=== PATIENT | female | born 1950 | race Caucasian/White ===

== ENCOUNTER 2018-10-30 16:23 | Inpatient (IN) | payer MEDICARE ==
[2018-10-30 16:43] VITALS: BMI 32.0
[2018-10-30] MEDS ORDERED: Bisacodyl 10 MG SUPP PR PRN (17:32)
[2018-10-30] MEDS ORDERED: Nitroglycerin 0.4 MG TAB (25 Tab Bottle) SL PRN (17:32)
[2018-10-30] MEDS ORDERED: Calcium Carbonate 500 MG ChewTAB PO PRN (17:32)
[2018-10-30] MEDS ORDERED: Acetaminophen 650 MG Suppository PR PRN (17:32)
[2018-10-30] MEDS ORDERED: Guaifenesin DM 100-10/5 ML UDCUP PO PRN (17:32)
[2018-10-30] MEDS ORDERED: Loperamide HCl 2 MG CAP PO PRN ×2 (17:32)
[2018-10-30] MEDS ORDERED: Ondansetron ODT 4 MG TAB PO PRN (17:32)
[2018-10-30] MEDS: Zolpidem Tartrate 5 MG TAB PO PRN (20:08)
[2018-10-30] MEDS: ALPRAZolam 0.5 MG TAB PO PRN (20:08)
[2018-10-30] MEDS: Aspirin 81 mg Enteric Coated Tablet PO SCH (20:08)
[2018-10-30] MEDS: Acetaminophen 500 MG TAB PO PRN (20:08)
[2018-10-30 20:46] LABS: Bilirubin Negative (Negative); Blood, Urine Negative (Negative); Clarity Clear (Clear); Glucose, Urine (Dipstick) Negative (Negative); Leukocyte Negative (Negative); Nitrite Negative (Negative); Protein, Urine (Dipstick) Negative (Neg-Trace); Specific Gravity, Urine 1.005 (1.002-1.036); Urobilinogen 0.2 mg/dL (0.2-1.0); pH, Urine 6.5 (5.0-9.0)
[2018-10-30] MEDS ORDERED: Gabapentin 300 MG CAP PO SCH (21:00)
[2018-10-30 21:25] LABS: Squamous Epithelial 0-3 HPF (0-3)
[2018-10-31 05:09] LABS: #Basophils 0.1 thou/uL (0.0-0.2); #Eosinphils 0.3 thou/uL (0.0-0.7); #Lymphocytes 1.2 thou/uL (1.20-3.40); #Monocytes 0.6 thou/uL (0.11-0.59); #Neutrophils 4.4 thou/uL (1.40-6.50); %Basophils 0.8 % (0.0-1.0); %Eosinophils 4.4 % (0.0-10.0); %Lymphocytes 18.5 % (21.0-51.0); %Monocytes 9.1 % (0.0-10.0); %Neutrophils 67.1 % (42.0-75.0); Hemoglobin 10.6 g/dL (12.0-16.0); Mean Corpuscular HGB CONC 32.3 g/dL (32.0-36.0); Mean Corpuscular Hemoglobin 28.8 pg (27.0-31.0); Mean Corpuscular Volume 89.1 fL (78.0-98.0); Mean Platelet Volume 5.6 fL (7.4-10.4); Platelet Count 237 thou/uL (130-400); RBC Distribution Width 12.6 % (11.5-14.5); Red Blood Cell (RBC) Count 3.68 mill/uL (4.20-5.40); White Blood Cell (WBC) Count 6.5 thou/uL (4.8-10.8)
[2018-10-31] MEDS: Levothyroxine Sodium 88 MCG TAB PO SCH (05:15)
[2018-10-31 05:28] LABS: ALT (SGPT) 15 U/L (8-55); AST (SGOT) 18 U/L (5-34); Albumin 3.2 g/dL (3.4-4.8); Alkaline Phosphatase 74 U/L (40-150); Anion Gap 12 mmol/L (10-20); BUN (Urea Nitrogen) 4 mg/dL (9.8-20.1); Bilirubin, Total 0.7 mg/dL (0.2-1.2); Calc. Creatinine Clearance 140 mL/min (70-130); Carbon Dioxide 29 mmol/L (23-31); Chloride 98 mmol/L (98-107); Estimated GFR-MDRD Greater than 90; Globulin 2.7 g/dL (2.4-3.5); Glucose 103 mg/dL (80-115); Potassium 4.1 mmol/L (3.5-5.1); Protein, Total 5.9 g/dL (6.0-8.3); Sodium 135 mmol/L (136-145)
[2018-10-31] MEDS ORDERED: Polyethylene Glycol 3350 17 GM Packet PO PRN (06:26)
[2018-10-31] MEDS: Aspirin 81 mg Enteric Coated Tablet PO SCH ×2 (08:58→20:41)
[2018-10-31] MEDS: traMADol HCl 50 MG TAB PO PRN ×2 (08:59→14:43)
[2018-10-31] MEDS: HYDROcodone/Acetaminophen 10/325 mg Tablet PO PRN (10:12)
--- NOTE | 2018-10-31 13:50 | HP ---
HISTORY OF PRESENT ILLNESS: Ms. Sujey Roldan is a very pleasant 67-year-old white female, who had an elective left total hip arthroplasty done by Dr. Cuevas. Postoperatively, she did very well, but lives by herself and was unable to go home and take care of herself. She was transferred to [facility] for physical therapy and occupational therapy to increase her strength and stamina, so she can go home soon. The patient states she is doing well. She slept well last night. Her pain is under very good control and she is a little hungry this morning. She denies being constipated. PAST MEDICAL HISTORY: 1. Reveals the patient does have a history of hypothyroidism. 2. Insomnia. 3. Anxiety. 4. Degenerative joint disease. 5. Generalized weakness. PAST SURGICAL HISTORY: 1. The patient has had 2 vaginal deliveries. 2. Breast augmentation. 3. Total left hip arthroplasty. FAMILY HISTORY: Reveals the patient's father is alive at age 94 and the patient takes care of him. The patient's mother at age 89. She had some dementia. The patient has 2 brothers, both have coronary artery disease and diabetes. The patient has 2 healthy daughters. SOCIAL HISTORY: Reveals the patient is . She lives by herself. The patient does not smoke and rarely has any alcohol intake. She is retired housewife and one of her husbands was in . She is at this time. 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 PRESENT MEDICATIONS: Revealed the patient presently takes the followin. Xanax 0.25 mg twice a day p.r.n. anxiety. 2. Aspirin 81 mg a day. 3. Levothyroxine 88 mcg daily. 4. Tramadol 50 mg q.4 hours p.r.n. moderate pain. 5. Ambien 5 mg h.s. p.r.n. insomnia. 6. The patient was on gabapentin 300 mg h.s., but she states she does not need that anymore since her surgery. ALLERGIES: REVEAL THE PATIENT IS NOT ALLERGIC TO ANY MEDICATIONS. REVIEW OF SYSTEMS: CONSTITUTIONAL: The patient denies any change in appetite, weight, fatigue, malaise, nausea, vomiting, fever, chills, or night sweats. She has occasional pain, which is well controlled. SKIN: The patient denies any skin problems including itching, rash, significant moles, or skin cancer. HEENT: The patient denies any change in hearing or vision or cataracts. Denies any sore throat, runny nose, sneezing, or hoarseness. RESPIRATORY: The patient denies any shortness of breath, cough, cold, wheezing, dyspnea on exertion, or productive sputum. HEART: The patient denies any chest pain, lower extremity edema, except secondary to her left hip surgery, syncope, claudication, or palpitations. GI: The patient denies nausea; vomiting; indigestion; diarrhea; constipation; bloody, black or tarry stools; or hemorrhoids. MUSCULOSKELETAL: The patient does have some arthralgias in her left hip postop, but she states her pain is much improved than it was before she had her surgery. NEUROLOGIC: The patient denies any stroke, tingling, numbness, weakness, focal neuropathies, fainting spells, loss of consciousness, or seizures. PSYCHOLOGIC: The patient denies depressive disorder, stress, significant anxiety, memory problems, or concentration problems. ENDOCRINE: The patient denies any polydipsia, polyuria, polyphagia, heat or cold intolerance. PHYSICAL EXAMINATION: GENERAL: This is a well-developed, well-nourished, very pleasant 67-year-old white female, in no apparent distress at this time. HEENT: Normocephalic, nontraumatic cranium. Pupils are equal, round, and reactive. Extraocular movements are intact. Nose and throat are slightly dry. NECK: Supple without masses, nodes, or bruits. CHEST: Clear to auscultation. No rales. No rhonchi. No wheezes. No cough is heard. HEART: Reveals a regular rate and rhythm without murmurs, gallops, or rubs. ABDOMEN: Soft, nontender without organomegaly. Normal bowel sounds are noted. : Deferred. EXTREMITIES: Reveal no clubbing, cyanosis, or edema. MUSCULOSKELETAL: The left hip has a surgical incision from her total left hip arthroplasty done by Dr. Cuevas. Presently covered with a dressing, which I did not remove. There is no drainage at all on the dressing this morning. PSYCHOLOGIC: The patient is oriented to person, place, time, and situation. Her affect and mood are appropriate. Memory, recent and remote are intact. ASSESSMENT: 1. Status post total left hip arthroplasty done by Dr. Cuevas. 2. Hypothyroidism. 3. History of having insomnia. 4. History of anxiety in the past. Takes Xanax 0.5 b.i.d. She states she rarely takes more than 4 pills in a whole month. 5. Neuropathy secondary to her left hip osteoarthritis, but the patient denies gabapentin at this time. States that pain is gone. 6. Generalized weakness. PLAN: 1. The patient is here for physical therapy and occupational therapy to increase her strength and stamina. 2. The patient lives independently by herself and will need to be at maximum strength so she go home and care for himself. 3. Continue present medications. 4. Wean pain medication as available. 5. Stress ulcer prophylaxis. 6. Decubitus precautions. 7. DVT prophylaxis. 8. Physical therapy and occupational therapy. Job ID: [id number]
[2018-10-31] MEDS: Acetaminophen 500 MG TAB PO PRN ×2 (14:43→20:42)
[2018-10-31] MEDS: Zolpidem Tartrate 5 MG TAB PO PRN (20:42)
[2018-10-31] MEDS: ALPRAZolam 0.5 MG TAB PO PRN (20:42)
[2018-11-01] MEDS: Acetaminophen 500 MG TAB PO PRN ×2 (03:36→09:18)
[2018-11-01] MEDS: traMADol HCl 50 MG TAB PO PRN ×3 (03:36→20:39)
[2018-11-01] MEDS: Levothyroxine Sodium 88 MCG TAB PO SCH (06:03)
--- NOTE | 2018-11-01 07:41 | PRG ---
DATE OF SERVICE: 11/01/2018 SUBJECTIVE: Ms. Roldan is a very pleasant 67-year-old white female, who had an elective total hip arthroplasty done by Dr. Cuevas. Postoperatively, she was not good enough to go home by herself, so she was transferred to [facility] for PT and OT. She is here to increase her strength, stamina, and balance. The patient states she walked a little bit yesterday and her pain is better than she expected, but still present. She is not near strong as she thought she would be. OBJECTIVE: VITAL SIGNS: Reveal blood pressure 111/61, pulse 92 to 94, respirations 20, O2 saturation 93% to 94% on room air, and T-max 97.3. GENERAL: This is a well-developed and well-nourished, very pleasant 67-year-old white female, in no apparent distress at this time. HEENT: Normocephalic and nontraumatic cranium. The pupils are equally round and reactive. Extraocular movements are intact. Nose and throat are slightly dry. NECK: Supple without masses, nodes, or bruits. CHEST: Clear to auscultation. No rales, rhonchi, wheezes, or cough is heard. HEART: Reveals a regular rate and rhythm without murmurs, gallops, or rubs. ABDOMEN: Soft and nontender without organomegaly. Normal bowel sounds are noted in all 4 quadrants. : Deferred. EXTREMITIES: Reveal no clubbing, cyanosis, or edema. Left hip surgical incision is really nontender. Presently covered with dressing with no significant drainage again. The patient is oriented to person, place, and time. ASSESSMENT: 1. Status post total left hip arthroplasty by Dr. Cuevas. 2. Hypothyroidism. 3. Insomnia. 4. Anxiety in the past. 5. Neuropathy secondary to left hip osteoarthritis. 6. Postop pain. 7. Generalized weakness. PLAN: 1. Continue physical therapy and occupational therapy to increase her strength and stamina. 2. Continue present medications. 3. Pain medication as needed, but wean as able. 4. Stress ulcer prophylaxis. 5. Decubitus precautions. 6. DVT prophylaxis. 7. Physical therapy and occupational therapy. Job ID: [id number]
[2018-11-01] MEDS: Aspirin 81 mg Enteric Coated Tablet PO SCH ×2 (09:18→20:39)
[2018-11-01] MEDS: Senokot S 8.6-50 MG TAB PO PRN (13:50)
[2018-11-01] MEDS: HYDROcodone/Acetaminophen 10/325 mg Tablet PO PRN (14:42)
[2018-11-01] MEDS: Zolpidem Tartrate 5 MG TAB PO PRN (20:41)
[2018-11-01] MEDS: ALPRAZolam 0.5 MG TAB PO PRN (20:41)
[2018-11-02] MEDS: HYDROcodone/Acetaminophen 10/325 mg Tablet PO PRN (00:52)
[2018-11-02] MEDS: Levothyroxine Sodium 88 MCG TAB PO SCH (06:02)
[2018-11-02] MEDS: Aspirin 81 mg Enteric Coated Tablet PO SCH ×2 (08:18→21:07)
[2018-11-02] MEDS: Senokot S 8.6-50 MG TAB PO PRN (12:27)
--- NOTE | 2018-11-02 14:51 | PRG ---
DATE OF SERVICE: 11/02/2018 SUBJECTIVE: Ms. Roldan is resting comfortably in bed. She denies any complaints except constipation. Pain is well controlled. She is tolerating her therapy. No family at bedside. No other concerns or questions. OBJECTIVE: VITAL SIGNS: She is afebrile. Heart rate 68, respirations 18, oxygen saturation 95% on room air, blood pressure 139/88. CARDIOVASCULAR: S1 and S2 plus. RESPIRATORY: Normal vesicular breath sounds. ABDOMEN: Soft, nontender. Bowel sounds heard in all quadrants. EXTREMITIES: Without cyanosis or clubbing. Peripheral pulses are palpable. Hip incision with dressing. CENTRAL NERVOUS SYSTEM: A and O x3. Cranial nerves 2 through 12 are intact. Grossly nonfocal. IMPRESSION: 1. Hypothyroidism. 2. Degenerative joint disease. 3. Anxiety. 4. Insomnia. 5. Osteoarthritis, status post hip replacement to the left. 6. Deconditioning. PLAN: 1. Continue current medications. 2. Pain control. 3. MiraLAX daily and add Dulcolax suppository p.r.n. 4. Stool softener daily. 5. Incision care. 6. Orthopedic precautions. 7. PT, OT eval and treat. 8. Recommended use of incentive spirometry. 9. Stress ulcer prophylaxis. 10. Routine laboratory values. 11. Discussed with the patient in detail. All questions answered. Job ID: [id number]
[2018-11-02] MEDS: ALPRAZolam 0.5 MG TAB PO PRN (21:06)
[2018-11-02] MEDS: Zolpidem Tartrate 5 MG TAB PO PRN (21:06)
[2018-11-02] MEDS: traMADol HCl 50 MG TAB PO PRN (21:06)
[2018-11-03] MEDS: Levothyroxine Sodium 88 MCG TAB PO SCH (06:03)
[2018-11-03] MEDS: HYDROcodone/Acetaminophen 10/325 mg Tablet PO PRN ×2 (08:35→16:03)
[2018-11-03] MEDS: Aspirin 81 mg Enteric Coated Tablet PO SCH ×2 (08:36→21:13)
[2018-11-03] MEDS: ALPRAZolam 0.5 MG TAB PO PRN ×2 (08:41→21:13)
--- NOTE | 2018-11-03 13:11 | PRG ---
DATE OF SERVICE: 11/03/2018 SUBJECTIVE: Ms. Roldan is doing well. Denies any complaints. She had a good bowel movement. Denies any concerns or questions. OBJECTIVE: VITAL SIGNS: She is afebrile. Heart rate is 85, respirations 18, oxygen saturation 94% on room air, and blood pressure 139/86. CARDIOVASCULAR: S1 and S2 plus. RESPIRATORY: Normal vesicular breath sounds. ABDOMEN: Soft, nontender. Bowel sounds heard in all quadrants. EXTREMITIES: Without cyanosis or clubbing. Hip incision is healthy. CENTRAL NERVOUS SYSTEM: A/O x3. Cranial nerves 2 through 12 intact. IMPRESSION: 1. Osteoarthritis, status post left total hip replacement. 2. Hypothyroidism. 3. Anxiety. 4. Insomnia. 5. Deconditioning. PLAN: 1. Continue current medications. 2. Nutritional support. 3. Colace daily. 4. Bowel regimen. 5. Pain management. 6. Incision care. 7. Orthopedic precautions. 8. PT/OT eval and treat. 9. DVT and stress ulcer prophylaxis. Job ID: [id number]
[2018-11-03] MEDS: traMADol HCl 50 MG TAB PO PRN (21:13)
[2018-11-03] MEDS: Zolpidem Tartrate 5 MG TAB PO PRN (21:14)
[2018-11-04] MEDS: Levothyroxine Sodium 88 MCG TAB PO SCH (05:59)
[2018-11-04] MEDS: Docusate 100 MG CAP PO SCH (09:02)
[2018-11-04] MEDS: Aspirin 81 mg Enteric Coated Tablet PO SCH ×2 (09:02→20:48)
[2018-11-04] MEDS: Acetaminophen 500 MG TAB PO PRN (12:04)
[2018-11-04] MEDS: traMADol HCl 50 MG TAB PO PRN (12:04)
[2018-11-04] MEDS: Senokot S 8.6-50 MG TAB PO PRN (20:45)
[2018-11-04] MEDS: Zolpidem Tartrate 5 MG TAB PO PRN (20:46)
[2018-11-05] MEDS: Levothyroxine Sodium 88 MCG TAB PO SCH (06:18)
[2018-11-05] MEDS: Docusate 100 MG CAP PO SCH (08:56)
[2018-11-05] MEDS: traMADol HCl 50 MG TAB PO PRN ×2 (08:56→15:19)
[2018-11-05] MEDS: Acetaminophen 500 MG TAB PO PRN ×3 (08:56→21:28)
[2018-11-05] MEDS: Aspirin 81 mg Enteric Coated Tablet PO SCH ×2 (08:56→20:22)
[2018-11-05] MEDS: ALPRAZolam 0.5 MG TAB PO PRN ×2 (09:01→20:22)
--- NOTE | 2018-11-05 13:57 | PRG ---
DATE OF SERVICE: 11/05/2018 SUBJECTIVE: Ms. Roldan is doing well. Denies any complaints. Resting comfortably. Tolerating her therapy. She is happy with her progress. Pain is controlled. No family at bedside. OBJECTIVE: VITAL SIGNS: She is afebrile. Heart rate is 105, respirations 18, oxygen saturation 94% on room air, and blood pressure 129/83, this was apparently when she was anxious. After she got an anxiety pill and recheck, currently now, her heart rate is 78. CARDIOVASCULAR SYSTEM: S1 and S2 plus. RESPIRATORY SYSTEM: Normal vesicular breath sounds. ABDOMEN: Soft and nontender. Bowel sounds heard in all quadrants. EXTREMITIES: Without cyanosis or clubbing. Peripheral pulses are palpable. Hip incision is healthy. CENTRAL NERVOUS SYSTEM: AAO x3. Cranial nerves 2 through 12 intact. Improving generalized weakness. IMPRESSION: 1. Osteoarthritis, status post left total hip replacement. 2. Hypothyroidism. 3. Anxiety. 4. Insomnia. 5. Improving deconditioning. PLAN: 1. Continue current medications. 2. Nutritional support. 3. DVT and stress ulcer prophylaxis. 4. Decubitus precautions. 5. Incision care. 6. Orthopedic precautions. 7. Continue PT/OT treatment. Discussed with the patient and nursing in detail. All questions answered. Job ID: [id number]
[2018-11-05] MEDS: Zolpidem Tartrate 5 MG TAB PO PRN (21:28)
[2018-11-06] MEDS: Levothyroxine Sodium 88 MCG TAB PO SCH (05:50)
[2018-11-06] MEDS: Aspirin 81 mg Enteric Coated Tablet PO SCH ×2 (08:56→21:14)
[2018-11-06] MEDS: Docusate 100 MG CAP PO SCH (08:56)
[2018-11-06] MEDS: traMADol HCl 50 MG TAB PO PRN ×2 (13:21→23:56)
[2018-11-06] MEDS: Acetaminophen 500 MG TAB PO PRN ×2 (13:24→21:53)
[2018-11-06] MEDS: ALPRAZolam 0.5 MG TAB PO PRN (21:14)
[2018-11-06] MEDS: Zolpidem Tartrate 5 MG TAB PO PRN (21:53)
[2018-11-07] MEDS: Levothyroxine Sodium 88 MCG TAB PO SCH (05:57)
[2018-11-07] MEDS: Aspirin 81 mg Enteric Coated Tablet PO SCH ×2 (09:07→21:27)
[2018-11-07] MEDS: Docusate 100 MG CAP PO SCH (09:07)
[2018-11-07] MEDS: Acetaminophen 500 MG TAB PO PRN (11:13)
[2018-11-07] MEDS: HYDROcodone/Acetaminophen 10/325 mg Tablet PO PRN (12:48)
--- NOTE | 2018-11-07 16:58 | PRG ---
DATE OF SERVICE: 11/07/2018 SUBJECTIVE: Ms. Roldan is doing well. Denies any complaints. Resting comfortably. She is ambulating with the help of a walker. She apparently had what looked like restless legs yesterday and wondered if she is on gabapentin. Reviewed her medication list and she has not been on the gabapentin, although it was on her discharge med list, so we will get her back on it. OBJECTIVE: VITAL SIGNS: She is afebrile. Heart rate 81, respirations 16, oxygen saturation 93% on room air, blood pressure 143/84. CARDIOVASCULAR: S1 and S2 plus. RESPIRATORY: Normal vesicular breath sounds. ABDOMEN: Soft, nontender. Bowel sounds heard in all quadrants. EXTREMITIES: Without cyanosis or clubbing. Peripheral pulses are palpable. Hip incision is healthy. IMPRESSION: 1. Hypothyroidism. 2. Osteoarthritis. 3. Depression and anxiety. 4. Insomnia. 5. Improving deconditioning. PLAN: 1. Continue current medications. 2. Resume gabapentin. 3. Nutritional support. 4. DVT and stress ulcer prophylaxis. 5. Decubitus precautions. 6. Orthopedic precautions and incision care. 7. Continue PT, OT. 8. Routine laboratory values. 9. Discussed with the patient and nursing in detail. All questions answered. Job ID: [id number]
[2018-11-07] MEDS: Zolpidem Tartrate 5 MG TAB PO PRN (21:27)
[2018-11-07] MEDS: Gabapentin 300 MG CAP PO SCH (21:27)
[2018-11-07] MEDS: ALPRAZolam 0.5 MG TAB PO PRN (21:29)
[2018-11-07] MEDS: Senokot S 8.6-50 MG TAB PO PRN (21:30)
[2018-11-08] MEDS: Levothyroxine Sodium 88 MCG TAB PO SCH (06:02)
[2018-11-08] MEDS: Docusate 100 MG CAP PO SCH (09:09)
[2018-11-08] MEDS: Aspirin 81 mg Enteric Coated Tablet PO SCH ×2 (09:09→20:31)
[2018-11-08] MEDS: HYDROcodone/Acetaminophen 10/325 mg Tablet PO PRN (12:45)
--- NOTE | 2018-11-08 15:51 | PRG ---
DATE OF SERVICE: 11/08/2018 SUBJECTIVE: Ms. Roldan is doing well. Denies any complaints. She is ambulating around the nurse's stations with the help of her walker. Her pain is well controlled. No family at bedside. Discussed with nursing. OBJECTIVE: VITAL SIGNS: She is afebrile, heart rate 84, respirations 16, oxygen saturation 97% on room air, and blood pressure 134/81. CARDIOVASCULAR SYSTEM: S1, S2 plus. RESPIRATORY SYSTEM: Normal vesicular breath sounds. ABDOMEN: Soft, nontender. Bowel sounds heard in all quadrants. EXTREMITIES: Without cyanosis or clubbing. Hip incision is healthy. CENTRAL NERVOUS SYSTEM: A, A, and O x3. Cranial nerves 2 through 12 intact. Improving deconditioning. IMPRESSION: 1. Osteoarthritis, status post left total hip replacement. 2. Hypothyroidism. 3. Anxiety. 4. Insomnia. 5. Improving deconditioning. 6. Possible restless legs syndrome versus neuropathy, much improved on gabapentin. PLAN: 1. Continue current medications. 2. Nutritional support. 3. DVT and stress ulcer prophylaxis. 4. Decubitus precautions. 5. Incision care. 6. Orthopedic precautions. 7. Physical therapy. 8. Routine laboratory values. Job ID: [id number]
[2018-11-08] MEDS: Gabapentin 300 MG CAP PO SCH (20:31)
[2018-11-08] MEDS: Zolpidem Tartrate 5 MG TAB PO PRN (20:31)
[2018-11-08] MEDS: ALPRAZolam 0.5 MG TAB PO PRN (20:31)
[2018-11-09] MEDS: Levothyroxine Sodium 88 MCG TAB PO SCH (05:45)
[2018-11-09] MEDS: Docusate 100 MG CAP PO SCH (08:51)
[2018-11-09] MEDS: Aspirin 81 mg Enteric Coated Tablet PO SCH ×2 (08:51→20:45)
[2018-11-09] MEDS: HYDROcodone/Acetaminophen 10/325 mg Tablet PO PRN (12:16)
[2018-11-09] MEDS: Gabapentin 300 MG CAP PO SCH (20:45)
[2018-11-09] MEDS: Zolpidem Tartrate 5 MG TAB PO PRN (20:45)
[2018-11-09] MEDS: ALPRAZolam 0.5 MG TAB PO PRN (20:45)
[2018-11-10] MEDS: Levothyroxine Sodium 88 MCG TAB PO SCH (06:11)
[2018-11-10] MEDS: Aspirin 81 mg Enteric Coated Tablet PO SCH ×2 (08:40→20:59)
[2018-11-10] MEDS: Docusate 100 MG CAP PO SCH (08:40)
[2018-11-10] MEDS: ALPRAZolam 0.5 MG TAB PO PRN ×2 (12:39→20:58)
--- NOTE | 2018-11-10 15:17 | PRG ---
DATE OF SERVICE: 11/10/2018 SUBJECTIVE: Ms. Roldan is doing well. Denies any complaints. Resting comfortably. Tolerating her therapy. She is ambulating with the help of her walker and even walked with a cane. She is ready from therapy standpoint to be discharged tomorrow. She states that she does not need any prescriptions. No family at bedside. OBJECTIVE: VITAL SIGNS: She is afebrile. Heart rate 89, respirations 18, oxygen saturation 97% on room air, and blood pressure 138/75. CARDIOVASCULAR: S1 and S2 plus. RESPIRATORY: Normal vesicular breath sounds. ABDOMEN: Soft, nontender. Bowel sounds heard in all quadrants. EXTREMITIES: Without cyanosis or clubbing. Peripheral pulses are palpable. CENTRAL NERVOUS SYSTEM: Grossly nonfocal. Hip incision is healthy. IMPRESSION: 1. Osteoarthritis, status post left total hip replacement. 2. Hypothyroidism. 3. Anxiety. 4. Insomnia. 5. Improving deconditioning. PLAN: 1. Continue current medications. 2. Nutritional support. 3. Incision care. 4. Orthopedic precautions. 5. DVT and stress ulcer prophylaxis. 6. Decubitus precaution. 7. Routine laboratory values. 8. Physical therapy. 9. Discharge planning. 10. Anticipate discharge to home tomorrow. She states she does not need any refills on any medications. Job ID: [id number]
[2018-11-10] MEDS: Gabapentin 300 MG CAP PO SCH (20:58)
[2018-11-10] MEDS: Zolpidem Tartrate 5 MG TAB PO PRN (20:58)
[2018-11-10] MEDS: Senokot S 8.6-50 MG TAB PO PRN (20:58)
[2018-11-10] MEDS: HYDROcodone/Acetaminophen 10/325 mg Tablet PO PRN (22:29)
[2018-11-11] MEDS: Levothyroxine Sodium 88 MCG TAB PO SCH (05:54)
[2018-11-11 08:36] VITALS: BP 149/88; TEMP 98.2
[2018-11-11] MEDS: Aspirin 81 mg Enteric Coated Tablet PO SCH (09:32)
[2018-11-11] MEDS: Docusate 100 MG CAP PO SCH (09:32)
[2018-11-11] MEDS: ALPRAZolam 0.5 MG TAB PO PRN (09:34)
--- NOTE | 2018-11-12 15:49 | DIS ---
DATE OF ADMISSION: 10/30/2018 DATE OF DISCHARGE: 11/11/2018 PRINCIPAL DIAGNOSIS: Left total hip arthroplasty for osteoarthritis. SECONDARY DIAGNOSES: 1. Hypothyroidism. 2. Anxiety. 3. Deconditioning. 4. Osteoarthritis. 5. Insomnia. COMPLICATIONS: None. ADVERSE REACTIONS: None. PROCEDURES: None. CONSULTATIONS: Physical Therapy and Occupational Therapy. HOSPITAL COURSE: The patient was admitted on 10/30 after undergoing left total hip arthroplasty. She has done remarkably well with therapy and was deemed stable for discharge. She denies any concerns or questions. She did have some discomfort in her legs, mainly at night and she apparently was taking gabapentin at home and once we started her back on her gabapentin, the pain resolved. She was deemed stable for discharge and advised to follow up with her PCP in the next 10 to 14 days as well as her orthopedic surgeon. She is to use her walker for activity. Activity restrictions per Orthopedics. She is to call us with any questions or concerns. PHYSICAL EXAMINATION: VITAL SIGNS: On the day of discharge, she is afebrile. Heart rate is 80, respirations 18, oxygen saturation 97% on room air, blood pressure 149/88, which is unusual for her. It is always under good control. DISCHARGE MEDICATIONS: 1. Alprazolam 0.5 mg p.o. b.i.d. p.r.n. 2. Aspirin 81 mg p.o. b.i.d. for a total of one month from surgery. 3. Vitamin D3 at 1000 international units daily. 4. Gabapentin 300 mg at bedtime. 5. [place] 10/325 q.6 p.r.n. 6. Levoxyl 88 mcg daily. 7. Ambien 5 mg at bedtime. As stated, the patient was advised to call us with any questions or concerns. Outpatient followup with PCP or orthopedic surgeon. Activity restrictions per Orthopedics. Job ID: [id number]
== END 2018-11-11 11:18 | disposition home or self-care (01) | DRG 561 ==
LOC: NAV ACUTE 16:23
PROVIDERS: ADMIT Internal Medicine; ATTEND Internal Medicine
DX: Z47.1 Aftercare following joint replacement surgery (principal); E03.9 Hypothyroidism, unspecified; G47.00 Insomnia, unspecified; F41.9 Anxiety disorder, unspecified; M19.90 Unspecified osteoarthritis, unspecified site; R53.81 Other malaise; R53.1 Weakness; F32.9 Major depressive disorder, single episode, unspecified; Z96.642 Presence of left artificial hip joint; Z79.82 Long term (current) use of aspirin
CPT/HCPCS: 36415; 80053; 81001; 85025; 87070; 87205